=== PATIENT | male | born 1985 | race Caucasian/White ===

== ENCOUNTER 2019-07-17 05:42 | Emergency (ER) | payer BC, OTHER ==
[2019-07-17] MEDS ORDERED: Ketorolac 30 MG/ML SDV IVPUSH ONE (06:03)
--- NOTE | 2019-07-17 06:11 | EDM.PDOC ---
ED HPI GENERAL MEDICAL PROBLEM - General Chief Complaint: Abdominal Pain Stated Complaint: FLANK PAIN Time Seen by Provider: 07/17/19 05:50 Source of Information: Reports: Patient History Limitations: Reports: No Limitations - History of Present Illness INITIAL COMMENTS - FREE TEXT/NARRATIVE: TRIAGE NOTE -- Pt presents to ER for c/o left flank pain radiating around to his back starting at 0230. Pt states he has had trouble urinating since pain started. [ End ] Above. Noted. The patient has had pain on void. There is a family history of kidney stones. Patient's brother has had kidney stones. Patient himself has not had kidney stones at all in the past. There is been no fever vomiting or any other symptom of acute medical illness otherwise. Patient is a smoker. Risk factors then would consist of family history as well as the smoking. Patient has not taken any medication or tried any other measure to moderate his symptoms. He is in considerable discomfort and is moving around trying to get comfortable. Left Flank Pain Score (Numeric/FACES): 9 - Related Data Allergies Allergy/AdvReac Type Severity Reaction Status Date / Time cefaclor [From Ceclor] Allergy Severe Other Verified 07/17/19 06:00 sulfamethoxazole Allergy Severe Other Verified 07/17/19 06:00 [From Septra] trimethoprim [From Septra] Allergy Severe Other Verified 07/17/19 06:00 Home Meds: Home Meds Albuterol Sulfate [Albuterol Sulfate Hfa] 2 puff INH 6XDAY PRN 07/17/19 [History ] Tamsulosin HCl [Flomax] 0.4 mg PO DAILY #30 capsule 07/17/19 [Rx] oxyCODONE HCl/Acetaminophen [Percocet 5-325 mg Tablet] 1 each PO Q6H PRN #12 tablet 07/17/19 [Rx] Past Medical History Respiratory History: Reports: Asthma Social & Family History - Tobacco Use Smoking Status *Q: Current Every Day Smoker ED ROS GENERAL - Review of Systems Review Of Systems: Comprehensive ROS is negative, except as noted in HPI. ED EXAM, RENAL/ - Physical Exam Exam: See Below Exam Limited By: No Limitations General Appearance: Alert, WD/WN, No Apparent Distress (But obviously uncomfortable) Eye Exam: Bilateral Eye: EOMI, PERRL Ears: Normal External Exam Nose: Normal Inspection Throat/Mouth: Normal Inspection Head: Atraumatic, Normocephalic Neck: Normal Inspection, Supple Respiratory/Chest: No Respiratory Distress, Lungs Clear, Normal Breath Sounds Cardiovascular: Regular Rate, Rhythm GI/Abdominal: Soft, Other (There is some pain provoked by deep palpation of the left flank and also to some extent in the left groin area.). No: Guarding, Rebound Back Exam: Normal Inspection (Other than the findings as noted above) Extremities: Normal Inspection, Non-Tender Neurological: Alert, Oriented, Normal Cognition, No Motor/Sensory Deficits Psychiatric: Normal Affect, Normal Mood Skin Exam: Warm, Dry Course - Vital Signs Last Recorded V/S: Last Vital Signs Temp 36.5 C 07/17/19 05:53 Pulse 77 07/17/19 05:53 Resp 20 07/17/19 05:53 BP 159/110 H 07/17/19 05:53 Pulse Ox 97 07/17/19 05:53 - Orders/Labs/Meds Orders: Active Orders 24 hr Category Date Time Status Abdomen Pelvis wo Cont [CT] Stat Exams 07/17/19 06:01 Taken CBC WITH MANUAL DIFF [HEME] Stat Lab 07/17/19 06:44 Received COMPREHENSIVE METABOLIC PN,CMP [CHEM] Stat Lab 07/17/19 06:44 Received Sodium Chloride 0.9% [Normal Saline] 1,000 ml Med 07/17/19 06:15 Active IV ASDIRECTED Medication Orders Sodium Chloride (Normal Saline) 1,000 mls @ 150 mls/hr IV ASDIRECTED SWETA Last Admin: 07/17/19 06:19 Dose: 150 mls/hr Labs: Laboratory Tests 07/17/19 Range/Units 06:05 Urine Color Yellow (Yellow) Urine Appearance Slt cloudy H (Clear) Urine pH 5.5 (5.0-8.0) Ur Specific Campbell > or = 1.030 (1.005-1.030) Urine Protein Negative (Negative) Urine Glucose (UA) Negative (Negative) Urine Ketones Trace H (Negative) Urine Occult Blood 3+ H (Negative) Urine Nitrite Negative (Negative) Urine Bilirubin Negative (Negative) Urine Urobilinogen 0.2 (0.2-1.0) Ur Leukocyte Esterase Negative (Negative) Urine RBC >100 H (0-5) /hpf Urine WBC Not seen (0-5) /hpf Urine WBC Clumps Not seen (NOT SEEN) /hpf Ur Squamous Epith Cells Not seen (0-5) /hpf Urine Bacteria Not seen (FEW) /hpf Urine Mucus Not seen (FEW) /hpf Meds: Medications Generic Name Dose Route Start Last Admin Trade Name Freq PRN Reason Stop Dose Admin Sodium Chloride 1,000 mls @ 150 mls/hr 07/17/19 06:15 07/17/19 06:19 Normal Saline IV 150 mls/hr ASDIRECTED SWETA Administration Discontinued Medications Generic Name Dose Route Start Last Admin Trade Name Freq PRN Reason Stop Dose Admin Ketorolac Tromethamine 30 mg 07/17/19 06:03 07/17/19 06:13 Toradol IVPUSH 07/17/19 06:04 30 mg ONETIME ONE Administration - Re-Assessments/Exams Free Text/Narrative Re-Assessment/Exam: 07/17/19 06:43 CT shows evidence of a 3 mm stone at the ureteropelvic junction on the left. Discussed fully with the patient. See instructions to him. Blood work is pending at shift change and will ask Dr. Rois to take a look at that before the patient departs the ER. Departure - Departure Time of Disposition: 06:44 Disposition: Home, Self-Care 01 Condition: Good Clinical Impression: Ureteral calculus, left - Discharge Information *PRESCRIPTION DRUG MONITORING PROGRAM REVIEWED*: Not Applicable *COPY OF PRESCRIPTION DRUG MONITORING REPORT IN PATIENT RAEANN: Not Applicable Prescriptions: oxyCODONE HCl/Acetaminophen [Percocet 5-325 mg Tablet] 1 each PO Q6H PRN #12 tablet PRN Reason: Pain (Moderate 4-6) Tamsulosin HCl [Flomax] 0.4 mg PO DAILY #30 capsule Referrals: PCP,None [Primary Care Provider] - Fredy Pozo MD [Ordering Only Provider] - Forms: ED Department Discharge Additional Instructions: You have a small kidney stone which is in the ureter which connects the kidney to the bladder. The stone is almost to the bladder. You can pass a stone this small and it should pass readily. Drink fluids constantly and maintain brisk urine output. You have 2 medications one is Flomax which will make the stone easier to pass and Percocet which is a pain pill. You are to call Dr. Pozo urologist in [place] today and notify him of this visit. He may give you additional instructions and if the stone does not pass readily he will see you. He may wish to see you in any event. For any vomiting which is unremitting or for fever or any other troubling issue do not hesitate to return to the ER. Sepsis Event Note - Evaluation Sepsis Screening Result: No Definite Risk - Focused Exam Vital Signs: Vital Signs Temp Pulse Resp BP Pulse Ox 07/17/19 05:53 36.5 C 77 20 159/110 H 97 Date Exam was Performed: 07/17/19 Time Exam was Performed: 06:53 - My Orders Last 24 Hours: My Active Orders 07/17/19 06:01 Abdomen Pelvis wo Cont [CT] Stat 07/17/19 06:15 Sodium Chloride 0.9% [Normal Saline] 1,000 ml IV ASDIRECTED 07/17/19 06:44 CBC WITH MANUAL DIFF [HEME] Stat COMPREHENSIVE METABOLIC PN,CMP [CHEM] Stat - Assessment/Plan Last 24 Hours: My Active Orders 07/17/19 06:01 Abdomen Pelvis wo Cont [CT] Stat 07/17/19 06:15 Sodium Chloride 0.9% [Normal Saline] 1,000 ml IV ASDIRECTED 07/17/19 06:44 CBC WITH MANUAL DIFF [HEME] Stat COMPREHENSIVE METABOLIC PN,CMP [CHEM] Stat
[2019-07-17] MEDS ORDERED: Sodium Chloride 0.9% 1,000 ML IV SCH (06:15)
--- NOTE | 2019-07-17 07:23 | CT ---
CT abdomen and pelvis Technique: Multiple axial sections were obtained from above the dome of the diaphragm inferiorly through the pubic symphysis. Intravenous and oral contrast not utilized. Study has been performed as a ureteral stone protocol. Findings: Dilated left ureter is identified. This finding is caused by an obstructing 3 mm stone located at the UVJ. No other abnormal calcifications are seen along the course of the ureters. Small nonobstructing calculus is seen within the right kidney measuring about 3 mm. Other findings: Visualized lung bases show nothing acute. Noncontrast appearance of the liver and spleen appear within normal limits. Gallbladder contains no calcified gallstones. Pancreas is within normal limits. Adrenal glands show no nodule. Aorta shows no aneurysm. No retroperitoneal adenopathy or mesenteric abnormalities are seen. Appendix is seen which shows no dilatation. No pelvic mass or adenopathy is seen. No free fluid is seen. Small fat-containing umbilical hernia is noted. Bone window settings were reviewed. No acute osseous finding is appreciated. Impression: 1. Dilated left ureter caused by an obstructing stone located within the UVJ measuring 3 mm. 2. 3 mm nonobstructing stone within the right kidney. Diagnostic code #3 This report was dictated in MDT I agree with preliminary report from [facility], finalized on 07/17/19, 7:35 AM Central Daylight Time
== END 2019-07-17 07:26 | disposition home or self-care (01) ==
LOC: JD.ED 05:42
DX: N20.1 Calculus of ureter (principal); J45.909 Unspecified asthma, uncomplicated; F17.200 Nicotine dependence, unspecified, uncomplicated; Z88.2 Allergy status to sulfonamides; Z88.1 Allergy status to other antibiotic agents; Z79.899 Other long term (current) drug therapy
CPT/HCPCS: 36415; 74176; 80053; 81001; 85007; 85027; 96374; 99284; J1885; J7030; 99283